=== PATIENT | male | born 1965 | race Caucasian/White ===

== ENCOUNTER → 2024-12-26 | Outpatient (CLI) | payer OTHER, SELFPAY ==
--- NOTE | 2024-12-26 11:22 | MRI_ITS ---
PROCEDURE: BRAIN W/WO CONTRAST 12/26/2024 REASON FOR EXAM: HEARING LOSS IAC TECHNIQUE: BRAIN W/WO CONTRAST Multiplanar and multisequence images were obtained. CONTRAST: Clariscan VOLUME: 20 mL COMPARISON: none FINDINGS: No acute or hyperacute infarcts. No intracerebral or extra-axial hematomas. No obvious enhancing masses. Bilateral cerebral periventricular and subcortical white matter high T2/FLAIR WI signal. Normal MRI signal of the cerebellar hemispheres and brain stem. Prominent ventricular system, cortical sulci and extra-axial CSF spaces. No shift of midline structures. Normal & comparable sizes of the seventh and eighth cranial nerves on both sides. No obvious related masses. No cerebello-pontine angle masses detected. The examined mastoid air cells are clear. Normal appearance of the semicircular canals, vestibules and cochlea on both sides. Normal MRI appearance of orbital structures, both globes, optic nerves, optic chiasm, optic tracts and optic radiations. Scanned paranasal sinuses show sphenoid, frontal and ethmoidal sinusitis. MRI/Brain W/WO Contrast IMPRESSION: No acute infarcts. No intracerebral or extra-axial hematomas. No enhancing mass es. Bilateral cerebral microvascular ischemic changes. Age appropriate brain involutional changes. No obvious internal auditory canal masses. Sphenoid, frontal and ethmoidal sinusitis. Reading Location[facility] [id number]
== END | disposition home or self-care (01) ==
PROVIDERS: PCP Internal Medicine; Referring Provider Otolaryngology; Visit Provider Otolaryngology
DX: H91.90 Unspecified hearing loss, unspecified ear (principal)
CPT/HCPCS: 70553; A9575